=== PATIENT | male | born 1965 | race Caucasian/White ===

== ENCOUNTER 2018-06-20 09:33 | Outpatient (CLI) | payer OTHER ==
[2018-06-20 09:59] LABS: Creatinine,Urine 30.3 mg/dL (0.1-20.0)
[2018-06-20 10:00] LABS: Microalbumin/Creatinine Ratio 39.6 ug/mg
[2018-06-20 10:13] LABS: Albumin 4.5 g/dL (3.9-5); BUN/Creatinine Ratio 30; Blood Urea Nitrogen 18 mg/dL (9-20); Calcium 8.9 mg/dL (8.4-10.2); Hemolysis Index 7
== END 2018-06-20 09:34 | disposition home or self-care (01) ==
LOC: LAB 09:33
PROVIDERS: ATTEND Internal Medicine Nephrology
DX: E55.9 Vitamin D deficiency, unspecified (principal); R94.4 Abnormal results of kidney function studies
CPT/HCPCS: 36415; 80048; 82040; 82043; 84100